=== PATIENT | female | born 1985 | race Caucasian/White ===

== ENCOUNTER → 2020-10-28 10:49 | Outpatient (CLI) | payer OTHER, SELFPAY ==
--- NOTE | ~2020-10-28 | MM_ITS ---
EXAMINATION: MM screening [facility] BI w elena HISTORY: Screening TECHNIQUE: Craniocaudal and mediolateral oblique 3-D tomosynthesis images were obtained and synthetic 2-D images were generated. CAD analysis was submitted and interpreted. COMPARISON: No prior studies for comparison. BREAST PARENCHYMAL COMPOSITION: The breasts are heterogeneously dense, which may obscure small masses . FINDINGS: There are asymmetries centered in the upper outer quadrant of the left breast. There are no suspicious masses, calcifications or architectural distortion in the right breast to suggest maligna ncy. IMPRESSION: 1. Left breast asymmetries, upper outer quadrant. 2. Additional mammographic views and possible breast ultrasound are recommended. BI-RADS Category 0: Incomplete: Needs additional imaging evaluation. Reviewed, dictated and finalized at location A. TECHNIC MIXER IMPRESSION: 1. Left breast asymmetries, upper outer quadrant. 2. Additional mammographic views and possible breast ultrasound are recommended . BI-RADS Category 0: Incomplete: Needs additional imaging evaluation.
== END ==
PROVIDERS: PCP Family Medicine; Visit Provider Family Medicine
DX: Z12.31 Encounter for screening mammogram for malignant neoplasm of breast (principal); R92.8 Other abnormal and inconclusive findings on diagnostic imaging of breast
CPT/HCPCS: 77063; 77067

== ENCOUNTER → 2020-11-21 09:19 | Outpatient (CLI) | payer OTHER, SELFPAY ==
--- NOTE | ~2020-11-21 | MMUS_ITS ---
EXAMINATION: MM diagnostic mammo unilat LT, US breast LT complete HISTORY: Follow-up left breast asymmetries TECHNIQUE: Additional 3-D tomosynthesis images of the left breast were performed and synthetic 2-D im ages were generated. CAD analysis was submitted and interpreted. High resolution complete breast ultr asound was performed. COMPARISON: 10/28/2020 BREAST PARENCHYMAL COMPOSITION: The breasts are heterogenously dense, which may obscure small masses. FINDINGS: MAMMOGRAPHIC FINDINGS: There are no suspicious masses, calcifications or architectural distortion in the left breast to sugg est malignancy. ULTRASOUND: Complete left breast ultrasound: At 11:00, 8 cm from the nipple, there is a 3 mm cyst. No other discr ete solid or cystic masses are identified. IMPRESSION: 1. No mammographic or sonographic evidence for malignancy in the left breast. 2. Routine yearly screening mammogram and regular clinical breast examination are recommended. BI-RADS Category 2: Benign finding(s). Reviewed, dictated and finalized at location A. HASING SUPERVISOR IMPRESSION: 1. No mammographic or sonographic evidence for malignancy in the left breast. 2. Routine yearly screening mammogram and regular clinical breast examination are recommended. BI-RADS Category 2: Benign finding(s).
== END ==
PROVIDERS: PCP Family Medicine; Visit Provider Family Medicine
DX: R92.8 Other abnormal and inconclusive findings on diagnostic imaging of breast (principal)
CPT/HCPCS: 76641; 77065

== ENCOUNTER 2021-06-16 09:40 | Outpatient (CLI) | payer OTHER, SELFPAY ==
--- NOTE | 2021-06-16 09:50 | ECHO_ITS ---
Patient Info Name: Jerica Germain Age: 35 years : 1985 Gender: Female Ht: 65 in Wt: 235 lbs BSA: 2.26 m2 HR: 70 bpm BP: 110 / 76 mmHg Heart Rhythm: Sinus Rhythm Technical Quality: Good Exam Date: 06/16/2021 10:08 AM Exam Location: [facility] Patient Status: Outpatient Admit Date: 06/16/2021 Staff Ordering Physician: Jeimy Gutierrez MD [employer]: Kacey Denson RDCS Attending Provider: Jeimy Gutierrez MD Referring Physician: Brenda TALAMANTES; Exam Type: CA echo doppler color flow Study Info Indications R06.00 - Dyspnea, unspecified Complete two-dimensional, color flow and Doppler transthoracic echocardiogram is performed. Summary 1. Complete two-dimensional, color flow and Doppler transthoracic echocardiogram is performed. 2. Left ventricular chamber dimension is normal. 3. Left ventricular systolic function is normal, estimated at 60-65%. 4. The left ventricular diastolic function is abnormal. 5. E/e' 10 is mildly elevated. 6. Left atrial chamber dimension is mildly enlarged. 7. No pulmonary hypertension, estimated pulmonary arterial systolic pressure is 33 mmHg. Left Ventricle E/e' 10 is mildly elevated. Left ventricular chamber dimension is normal. Left ventricular systolic function is normal, estimated at 60-65%. The left ventricular diastolic function is abnormal. Right Ventricle Right ventricular chamber dimension is normal. Right ventricular systolic function is normal. Left Atria Left atrial chamber dimension is mildly enlarged. Right Atria Right atrial chamber dimension is normal. Aortic Valve The aortic valve is trileaflet. There is no aortic valve stenosis. There is no aortic valve regurgitation. Pulmonic Valve There is no pulmonic regurgitation. Mitral Valve There is no mitral valve stenosis. There is no mitral valve regurgitation. Tricuspid Valve There is no tricuspid valve regurgitation. No pulmonary hypertension, estimated pulmonary arterial systolic pressure is 33 mmHg. Pericardium/Pleural There is no pericardial effusion. Inferior Vena Cava Normal inferior vena cava with >50% collapse upon inspiration consistent with normal right atrial pressure, 5 mmHg. Aorta The aortic root size at the sinus of Valsalva is normal. Left Ventricular Outflow Tract Name Value Normal LVOT 2D LVOT Diameter 2.0 cm LVOT Doppler LVOT Peak Gradient 3 mmHg LVOT Mean Gradient 2 mmHg LVOT VTI 18 cm LVOT VTI/AV VTI Ratio 0.6 LVOT Stroke Volume 57 ml LVOT CO 11.7 l/min LVOT CI 5.2 l/min/m2 Pulmonic Valve Name Value Normal PV Doppler PV Peak Gradient
== END 2021-06-16 09:41 | disposition home or self-care (01) ==
LOC: ANHCARD 09:41
PROVIDERS: PCP Family Medicine; Visit Provider Family Medicine
DX: R06.02 Shortness of breath (principal); R60.0 Localized edema; Z86.16 Personal history of COVID-19; I51.7 Cardiomegaly; R93.1 Abnormal findings on diagnostic imaging of heart and coronary circulation
CPT/HCPCS: 93306

== ENCOUNTER 2022-07-07 02:00 | Day surgery (SDC) | payer OTHER, SELFPAY ==
[2022-06-22 13:11] VITALS: BMI 34.0
[2022-07-07 10:13] VITALS: BP 116/76; PULSE 87; RESP 16; TEMP 36.4; O2SAT 100
[2022-07-07] MEDS: LACTATED RINGERS 1,000 ML 150 ML IV CONT (10:16)
--- NOTE | 2022-07-07 10:24 | P.PNAN_ITS ---
Anes - Eval Pre Procedure Procedure: Operation Date: 07/07/22 11:15 Proposed Procedures p Piedad - Chan Quinn MD Date/Time: 07/07/22 10:24 Pre Op Diagnosis: hematochezia, abdominal pain Patient Data Age: 36 Gender: F Height: 1.65 m Weight: 92.2 kg Last Vital Signs Temp 97.5 F L 07/07/22 10:13 Pulse 87 07/07/22 10:13 Resp 16 07/07/22 10:13 BP 116/76 07/07/22 10:13 Pulse Ox 100 07/07/22 10:13 O2 Del Method Room Air 07/07/22 10:13 Allergies Allergy/AdvReac Type Severity Reaction Status Date / Time No Known Allergies Allergy Verified 07/07/22 10:12 Home Medications Medication Instructions Recorded Confirmed Type cetirizine 10 mg tablet (Zyrtec) 10 mg PO DAILY 08/24/19 07/07/22 History lansoprazole 15 mg capsule,delayed 15 mg PO DAILY 08/24/19 07/07/22 History release Sprintec (28) 0.25 mg-35 mcg See Rx Instructions .Route 05/28/22 07/07/22 Rx tablet (norgestimate-ethinyl .COMPLEX #168 tabs estradiol) Synthroid 100 mcg tablet See Rx Instructions .Route 05/28/22 07/07/22 Rx (levothyroxine) .COMPLEX #90 tabs ferrous sulfate 325 mg (65 mg 325 mg PO DAILY #60 tabs 05/28/22 07/07/22 Rx iron) tablet hydrochlorothiazide 25 mg tablet See Rx Instructions .Route 05/28/22 07/07/22 Rx .COMPLEX #90 tabs metoprolol succinate 25 mg See Rx Instructions .Route 05/28/22 07/07/22 Rx tablet,extended release 24 hr .COMPLEX #90 tabs ibuprofen 200 mg tablet 200 mg PO DAILY 06/22/22 07/07/22 History Patient hx anesthesia problems: none Family hx anesthesia problems: none Results Review: All pre-operative results and documents have been reviewed as part of the pre- operative evaluation. [facility] Past Medical History Medical History (Updated 05/28/22 @ 10:07 by Jeimy Gutierrez MD) COVID-19 Postcholecystectomy diarrhea Surgical History Surgical History (Updated 07/07/22 @ 10:26 by Chan Quinn MD) Hx of cholecystectomy (~2012) Family History Family History Father Hypertension Family history of elevated blood lipids Mother Hypertension Other Family history of cardiovascular disease Social History Social History Smoking status: Never smoker Alcohol intake: never Substance use: never Substance use type: does not use Living arrangements: with family Spiritual care concerns: No Exam Day of Procedure 07/07/22 10:24 Patient weight: obese Heart: regular rate and rhythm Lungs: clear to auscultation Airway: Mallampati scale class II Neurological: alert and oriented
--- NOTE | 2022-07-07 10:25 | PM.HPGS ---
History of Present Illness History of Present Illness Consent: Risks, benefits, and alternatives have been discussed and questions answered. Patient agrees to proceed with procedure. Chief complaint: hematochezia, abdominal pain Narrative: Jerica Germain is a 36 year old female with intermittent lower abdominal pain that sometimes so severe that she will pass out, intermittent diarrhea and few occasions had blood in BM. Celiac serology negative, never had colonoscopy. Using peptobismol. Review of Systems Constitutional: Constitutional: Denies headache(s) and Denies weakness Eyes: Eyes: Denies blurry vision ENT: Reports Normal hearing present, Denies headache(s) and Denies neck pain Cardiovascular: Cardiovascular: Denies chest pain and Denies dyspnea Respiratory: Respiratory: Denies dyspnea Gastrointestinal: Gastrointestinal: Reports no additional gastrointestinal complaints Genitourinary: Genitourinary: Denies dysuria Musculoskeletal: Musculoskeletal: Denies neck pain Integumentary/Breasts: Skin/Breast: Denies dry skin Neurologic: Reports Normal hearing present, Denies headache(s) and Denies weakness Psychiatric: Psychiatric: Denies anxiety Endocrine: Endocrine: Denies change in body appearance Hematologic/Lymphatic: Hematologic/Lymphatic: Denies easy bleeding Allergic/Immunologic: Allergic/Immunologic: Denies urticaria PMFSH Past Medical History Medical History (Updated 05/28/22 @ 10:07 by Jeimy Gutierrez MD) COVID-19 Postcholecystectomy diarrhea Surgical History Surgical History (Updated 07/07/22 @ 10:26 by Chan Quinn MD) Hx of cholecystectomy (~2012) Family History Family History Father Hypertension Family history of elevated blood lipids Mother Hypertension Other Family history of cardiovascular disease Social History Social History Smoking status: Never smoker Alcohol intake: never Substance use: never Substance use type: does not use Living arrangements: with family Spiritual care concerns: No Meds Home Medications and Allergies Home Medications Medication Instructions Recorded Confirmed Type cetirizine 10 mg tablet (Zyrtec) 10 mg PO DAILY 08/24/19 07/07/22 History lansoprazole 15 mg capsule,delayed 15 mg PO DAILY 08/24/19 07/07/22 History release Sprintec (28) 0.25 mg-35 mcg See Rx Instructions .Route 05/28/22 07/07/22 Rx tablet (norgestimate-ethinyl .COMPLEX #168 tabs estradiol) Synthroid 100 mcg tablet See Rx Instructions .Route 05/28/22 07/07/22 Rx (levothyroxine) .COMPLEX #90 tabs ferrous sulfate 325 mg (65 mg 325 mg PO DAILY #60 tabs 05/28/22 07/07/22 Rx iron) tablet hydrochlorothiazide 25 mg tablet See Rx Instructions .Route 05/28/22 07/07/22 Rx .COMPLEX #90 tabs metoprolol succinate 25 mg See Rx Instructions .Route 05/28/22 07/07/22 Rx tablet,extended release 24 hr .COMPLEX #90 tabs ibuprofen 200 mg tablet 200 mg PO DAILY 06/22/22 07/07/22 History Allergies Allergy/AdvReac Type Severity Reaction Status Date / Time No Known Allergies Allergy Verified 07/07/22 10:12 Vital Signs Vital Signs - 24 hr 07/07/22 10:13 Temperature 97.5 F L Pulse Rate 87 Respiratory Rate 16 Blood Pressure 116/76 Pulse Oximetry 100 Oxygen Delivery Room Air Exam Const: General: comfortable and no acute distress HENMT: Face/Nose/Sinus: Normal nares present Eyes: General: appearance normal, both eyes and all related structures Neck: Neck: no JVD Resp: Auscultation: clear to auscultation bilaterally Cardio: Rate: regular rate Rhythm: regular rhythm GI: Inspection: non-distended GI Palp: Yes Soft to palpation Skin: General skin exam: normal color Neuro: General: gait normal Speech: normal speech Extrem: General: normal to inspection Psych: Mental Status: mental statu
[2022-07-07 10:45] VITALS: BP 95/61; PULSE 70; RESP 16; O2SAT 100
[2022-07-07 10:55] VITALS: BP 99/70; PULSE 74; RESP 16; O2SAT 100
[2022-07-07 11:05] VITALS: BP 113/80; PULSE 70; RESP 15; O2SAT 100
== END 2022-07-07 11:16 | disposition home or self-care (01) ==
PROVIDERS: PCP Family Medicine; Visit Provider Internal Medicine Gastroenterology
PROC: 0DJD8ZZ Inspection of Lower Intestinal Tract, Via Natural or Artificial Opening Endoscopic (ICD-10-PCS; CPT 45378; principal; 2022-07-07 11:15)
DX: R19.7 Diarrhea, unspecified (principal); K58.9 Irritable bowel syndrome, unspecified; K92.1 Melena; K64.8 Other hemorrhoids; R10.30 Lower abdominal pain, unspecified; Z86.16 Personal history of COVID-19; Z90.49 Acquired absence of other specified parts of digestive tract; E66.9 Obesity, unspecified; Z68.33 Body mass index [BMI] 33.0-33.9, adult
CPT/HCPCS: 45380; 88305; J2704; J7120